=== PATIENT | female | born 1970 | race Caucasian/White ===

== ENCOUNTER 2017-09-25 04:38 | Emergency (ER) | payer OTHER, MEDICAID ==
[~2017-09-25] VITALS: Ht 165.1 cm; Wt 99.8 kg
[~2017-09-25 04:38] MED LIST: ADVAIR HFA 230M12 GM INH; ALLERGY25 MG PO; ALUMINUM H600 MG/5 M PO; AMBIEN 5 MG TABL5 M1 PO; ARIPIPRAZOLE5 MG PO; ARISTADA882 MG/3.2 IM; ARTIFICIAL TEA1 EACH OPHTHALMIC; ATIVAN1 MG PO; BENZTROPINE ME0.5 MG PO; BISMATROL262 MG/15 PO; CARAFATE 1 GM TA1 G1 PO; CLONAZEPAM 1 MG1 M1 PO; COLACE100 MG PO; DULCOLAX5 MG PO; DUONEB 2.5-0.5 M3 ML INH; FENOFIBRATE160 MG PO; FISH OIL 1,001000 M2 PO; FLOVENT HFA 4444 MCG NASAL; GAVISCON 80-141 EACH PO; HALLS5.8 MG PO; HYDROCODONE-AP1 EAC6 PO; HYDROXYZINE HCL25 M1 PO; IBUPROFEN 200200 M1 PO; LASIX 40 MG TAB40 M2 PO; LEVOTHYROXINE 0.1 MG PO; LOPERAMIDE 2 MG2 M1 PO; METFORMIN HCL500 MG PO; MILK OF MA2400 MG/10 PO; MILK OF MA400 MG/5 M PO; MIRALAX255 GM PO; MUCINEX TA600 MG/TA2 PO; OLANZAPINE10 MG PO; OLANZAPINE2.5 MG IV PUSH; OXYCODONE HCL 55 MG PO; OXYCODONE HCL15 MG PO; PERCOCET 5-3251 EACH PO; PROAIR RESPICL90 MCG IH; ROBAFEN DM COU118 ML PO; ROBAXIN 750 MG750 M1 PO; SENEXON-S TABL1 EACH PO; SUDOGEST30 MG PO; TRINATE TABLET1 TAB PO; TYLENOL325 MG PO; ULTRA-LIGHT RO1 EACH MC; VITAMIN D3400 UNIT PO; XANAX1 MG PO; ZOCOR20 MG PO; ZOLOFT100 MG PO; ZYPREXA 10 MG T10 MG PO; ZYPREXA5 MG PO
[2017-09-25 05:05] VITALS: BP 128/52
[2017-09-25] MEDS ORDERED: NORCO 5-325 TA1 EACH PO (05:19)
== END 2017-09-25 05:27 | disposition home or self-care (01) ==
LOC: M.ERS 04:38
DX: M25.562 Pain in left knee (principal); F31.9 Bipolar disorder, unspecified; G89.29 Other chronic pain; F41.9 Anxiety disorder, unspecified; M19.90 Unspecified osteoarthritis, unspecified site; E03.9 Hypothyroidism, unspecified; E78.5 Hyperlipidemia, unspecified; E66.9 Obesity, unspecified; F20.9 Schizophrenia, unspecified; K21.9 Gastro-esophageal reflux disease without esophagitis; J45.909 Unspecified asthma, uncomplicated; Z88.8 Allergy status to other drugs, medicaments and biological substances; Z91.013 Allergy to seafood; Z88.6 Allergy status to analgesic agent

== ENCOUNTER 2017-10-12 18:14 | Emergency (ER) | payer OTHER, MEDICAID ==
[~2017-10-12] VITALS: Ht 165.1 cm; Wt 99.8 kg
[~2017-10-12 18:14] MED LIST changes: +NORCO 5-325 TA1 EACH PO
[2017-10-12] MEDS ORDERED: HYDROCODONE-AP1 EAC6 PO (18:32)
[2017-10-12 18:34] VITALS: BP 112/68
== END 2017-10-12 18:41 | disposition home or self-care (01) ==
LOC: M.ERS 18:14
DX: G89.29 Other chronic pain (principal); M25.562 Pain in left knee; F31.9 Bipolar disorder, unspecified; E78.5 Hyperlipidemia, unspecified; J45.909 Unspecified asthma, uncomplicated; E03.9 Hypothyroidism, unspecified; M19.90 Unspecified osteoarthritis, unspecified site; Z88.8 Allergy status to other drugs, medicaments and biological substances; Z91.013 Allergy to seafood

== ENCOUNTER 2018-02-19 09:34 | Emergency (ER) | payer OTHER, MEDICAID ==
[~2018-02-19] VITALS: Ht 165.1 cm; Wt 104.3 kg
[2018-02-19] MEDS ORDERED: ZOLOFT25 MG PO (09:46)
[2018-02-19] MEDS ORDERED: ACCUNEB SO1.25 MG/1 INH (09:46)
[2018-02-19] MEDS ORDERED: XANAX 0.25 MG0.25 MG PO (09:46)
[2018-02-19] MEDS ORDERED: CHLORPROMAZINE100 MG PO (09:46)
[2018-02-19] MEDS ORDERED: EYE DROPS15 M1 OPHTHALMIC (09:47)
[2018-02-19 10:17] LABS: AMP/METHAMP Negative (Negative); BARBITURATES Negative (Negative); BENZODIAZEPINES Negative (Negative); COCAINE Negative (Negative); METHADONE Negative (Negative); OPIATES Negative (Negative); PCP Negative (Negative); THC Negative (Negative)
[2018-02-19] MEDS ORDERED: CIPROFLOXACIN500 M1 PO (10:22)
[2018-02-19] MEDS ORDERED: HYDROCODON-ACE1 EAC7 PO (10:22)
[2018-02-19 10:57] VITALS: BP 169/104
== END 2018-02-19 11:12 | disposition home or self-care (01) ==
LOC: M.ERS 09:34
PROVIDERS: Emergency Medicine
DX: S80.02XA Contusion of left knee, initial encounter (principal); F31.9 Bipolar disorder, unspecified; F41.9 Anxiety disorder, unspecified; G89.29 Other chronic pain; K21.9 Gastro-esophageal reflux disease without esophagitis; E03.9 Hypothyroidism, unspecified; J45.909 Unspecified asthma, uncomplicated; E78.5 Hyperlipidemia, unspecified; F20.9 Schizophrenia, unspecified; E66.9 Obesity, unspecified; Z68.38 Body mass index [BMI] 38.0-38.9, adult; Z79.899 Other long term (current) drug therapy; Z88.6 Allergy status to analgesic agent; Z88.8 Allergy status to other drugs, medicaments and biological substances; Z91.013 Allergy to seafood; W17.89XA Other fall from one level to another, initial encounter; Y93.89 Activity, other specified; Y92.89 Other specified places as the place of occurrence of the external cause; Y99.8 Other external cause status